=== PATIENT | male | born 1955 | race Native Hawaiian/Other Pacific Islander ===

== ENCOUNTER 2017-01-11 10:59 | Emergency (ER) | payer BC ==
[~2017-01-11] VITALS: Ht 188 cm; Wt 106.6 kg
[2017-01-11 11:17] VITALS: BP 141/88; TEMP 98.5
[2017-01-11] MEDS ORDERED: TRAZ100T OR (11:19)
[2017-01-11] MEDS ORDERED: OMEPRAZOLE40 MG OR (11:20)
[2017-01-11] MEDS ORDERED: SIMV40TA57 (11:20)
[2017-01-11] MEDS ORDERED: AMLO2.5T PO (11:21)
[2017-01-11] MEDS ORDERED: LISI20TA11 PO (11:21)
[2017-01-11] MEDS ORDERED: BUPROPN HCL300 MG PO (11:23)
[2017-01-11] MEDS ORDERED: PAROXETINE40 MG OR (11:23)
[2017-01-11] MEDS ORDERED: ASPIRIN 81 LOW81 MG PO (11:23)
[2017-01-11 11:54] LABS: PLATELET COUNT 299 K/uL (142-355)
[2017-01-11 12:06] LABS: POTASSIUM 3.7 mmol/L (3.6-5.2); SODIUM 140 mmol/L (136-145)
== END 2017-01-11 18:55 | disposition home or self-care (01) ==
LOC: ED 10:59
DX: R45.851 Suicidal ideations (principal); F32.89 Other specified depressive episodes; F10.129 Alcohol abuse with intoxication, unspecified; R00.0 Tachycardia, unspecified
CPT/HCPCS: 36415; 80053; 80307; 80320; 80329; 81000; 85027; 93005; 96365; 96374; 96375; 99285; G0479; J2060; J3411